=== PATIENT | female | born 1975 | race Caucasian/White ===

== ENCOUNTER 2018-12-30 21:15 | Emergency (ER) | payer OTHER ==
[2018-12-30 21:19] VITALS: RESP 18
[2018-12-30 21:58] LABS: BASOPHILS % (AUTO) 1 % (0-3); EOSINOPHILS % (AUTO) 3 % (0-9); HEMATOCRIT 35 % (35-47); HEMOGLOBIN 11.6 gm/dl (12.0-15.5); LYMPHOCYTES % (AUTO) 28.1 % (10-50); MEAN CORPUSCULAR HEMOGLOBIN 28.8 pg (27.0-32.0); MEAN CORPUSCULAR HGB CONC 33.4 gm/dl (32.0-36.0); MEAN CORPUSCULAR VOLUME 86 fL (81-99); MONOCYTES % (AUTO) 10.6 % (0-12); NEUTROPHILS % (AUTO) 58.2 % (37-80)
[2018-12-30 22:09] LABS: ALBUMIN 3.4 gm/dl (3.4-5.0); BILIRUBIN,TOTAL 0.2 mg/dl (0.2-1.0); CALCIUM 8.6 mg/dl (8.5-10.1); CARBON DIOXIDE 23.2 mEq/L (21-32); CREATININE 1.6 mg/dl (0.60-1.00); TOTAL PROTEIN 6.8 gm/dl (6.4-8.2)
[2018-12-30] MEDS ORDERED: ONDANSETRON 4 MG ODT BU ONE (22:16)
[2018-12-30] MEDS ORDERED: ONDANSETRON 4 MG ODT ONE (22:17)
[2018-12-30] MEDS ORDERED: AMOXIL/CLAVULANATE 400/5 ML PDR PO ONE (22:26)
[2018-12-30 23:24] VITALS: O2SAT 98
[2018-12-30 23:25] VITALS: BP 137/91; PULSE 83; TEMP 96.7
== END 2018-12-30 23:20 | disposition home or self-care (01) | DRG 153 ==
LOC: ED 21:15
DX: J06.9 Acute upper respiratory infection, unspecified (principal); Z94.0 Kidney transplant status; R53.81 Other malaise
CPT/HCPCS: 36415; 71046; 80053; 85025; 99283; A9270-GY

== ENCOUNTER 2019-05-13 14:17 | Emergency (ER) | payer BC, OTHER ==
[2019-05-13 15:11] VITALS: RESP 16; TEMP 96.6; O2SAT 97
[2019-05-13] MEDS ORDERED: SODIUM CHLORIDE 0.9% 1000ML 1,000 ML IV SCH ×2 (15:30→17:15)
[2019-05-13] MEDS ORDERED: INSULIN HUMAN REGULAR 100 U/ML SOL ONE (15:49)
[2019-05-13] MEDS ORDERED: ACETAMINOPHEN 500 MG 500 MG TAB PO ONE (15:51)
[2019-05-13 16:00] LABS: BASOPHILS % (AUTO) 1 % (0-3); EOSINOPHILS % (AUTO) 1 % (0-9); HEMATOCRIT 34 % (35-47); HEMOGLOBIN 11.3 gm/dl (12.0-15.5); LYMPHOCYTES % (AUTO) 24.4 % (10-50); MEAN CORPUSCULAR HEMOGLOBIN 28.2 pg (27.0-32.0); MEAN CORPUSCULAR HGB CONC 33.2 gm/dl (32.0-36.0); MEAN CORPUSCULAR VOLUME 85 fL (81-99); MONOCYTES % (AUTO) 7.4 % (0-12); NEUTROPHILS % (AUTO) 65.9 % (37-80)
[2019-05-13] MEDS ORDERED: ACETAMINOPHEN 500 MG 500 MG TAB ONE (16:02)
[2019-05-13 16:03] LABS: CALCIUM 8.7 mg/dl (8.5-10.1); CARBON DIOXIDE 25.1 mEq/L (21-32); CREATININE 1.59 mg/dl (0.60-1.00)
[2019-05-13 16:11] LABS: APPEARANCE,URINE Clear; BILIRUBIN,URINE NEGATIVE (NEGATIVE); COLOR,URINE Light yellow; GLUCOSE, URINE (UA) 2+ (NEGATIVE); KETONES,URINE NEGATIVE (NEGATIVE); LEUKOCYTE ESTERASE ,URINE NEGATIVE (NEGATIVE); NITRATE,URINE NEGATIVE (NEGATIVE); OCCULT BLOOD,URINE NEGATIVE (NEG-TRACE); PH,URINE 5.5; UROBILINOGEN,URINE 0.2 (0.2-1.0 EU)
[2019-05-13 16:15] LABS: BACTERIA NEGATIVE (< 1+); CRYSTALS NEGATIVE (0-3 AVE/HPF); RBC,URINE NEG (0-3AV/HPF); WBC,URINE NEG (0-5AV/HPF)
[2019-05-13] MEDS ORDERED: CEFTRIAXONE 1 GM PDS 1 GM in SODIUM CHLORIDE 0.9% 50 ML 50 ML IV ONE (17:02)
[2019-05-13] MEDS ORDERED: INSULIN HUMAN REGULAR 100 U/ML SOL SC SCH (17:30)
[2019-05-13] MEDS ORDERED: CEFTRIAXONE 1 GM PDS ONE (17:39)
[2019-05-13] MEDS ORDERED: MORPHINE SULFATE 10 MG/ML SOL IV ONE (18:29)
[2019-05-13] MEDS ORDERED: MORPHINE SULFATE 10 MG/ML SOL ONE (18:37)
[2019-05-13 19:17] LABS: CALCIUM 8.3 mg/dl (8.5-10.1); CARBON DIOXIDE 24.3 mEq/L (21-32); CREATININE 1.56 mg/dl (0.60-1.00)
[2019-05-13 22:02] VITALS: BP 149/99; PULSE 81
== END 2019-05-13 20:33 | disposition home or self-care (01) ==
LOC: ED 14:17
DX: R51 Headache (principal); R73.9 Hyperglycemia, unspecified; R10.9 Unspecified abdominal pain; Z94.0 Kidney transplant status; E87.8 Other disorders of electrolyte and fluid balance, not elsewhere classified; H53.8 Other visual disturbances; E11.9 Type 2 diabetes mellitus without complications
CPT/HCPCS: 36415; 74176; 80048; 81001; 82962; 85025; 86140; 87040; 87088; 96365; 96366; 96372; 96374; 99284; 99285; J0696; J1815; J2270